=== PATIENT | female | born 1955 | race African-American/Black ===

== ENCOUNTER 2025-03-22 16:11 | Outpatient (CLI) | payer MEDICARE, SELFPAY ==
--- NOTE | ~2025-03-22 | MM_ITS ---
EXAMINATION: MM screening chrissy BI w kermit HISTORY: Screening mammogram TECHNIQUE: Craniocaudal and mediolateral oblique 3-D tomosynthesis images were obtained and synthetic 2-D images were generated. CAD analysis was submitted and interpreted. COMPARISON: No prior mammogram is available for comparison at this institution. BREAST PARENCHYMAL COMPOSITION:Not Dense. There are scattered areas of fibroglandular density. FINDINGS: No suspicious mass, calcification, or architectural distortion are identified in either karli ast to suggest malignancy. There has been no suspicious interval change. IMPRESSION: No mammographic evidence of malignancy. Recommend routine screening mammography in one year. BI-RADS Category 1: Negative Reviewed, dictated and finalized at location .
--- OUTSIDE RECORDS SUMMARY | 2025-03-22 16:18 | XMS_ITS | Clinical Summary ---
Author Organization [facility] Facility Address [address] [address] Care Team Providers Care Surveillance Agent Name Role Phone Tono Torres MD Primary Care Provider [phone] Social History Tobacco Use Types Packs/Day Years Used Date Smoking Tobacco: Never Assessed Comments Unknown Sex and Gender Information Value Date Recorded Sex Assigned at Not on file Legal Sex Female 1:39 PM EDT Gender Identity Not on file Sexual Orientation Not on file Plan of Treatment Health Maintenance Due Date Last Done Comments Breast Cancer Screening 1955 Colorectal Cancer Screening: Annual FOBT 2002 Colorectal Cancer Screening: Colonoscopy 2002 Colorectal Cancer Screening: Sigmoidoscopy 2002 Pneumococcal Vaccine: 50+ Ye ars (1 of 1 - PCV) 2003 Influenza Vaccine (#1) 2025 Hepatitis B Vaccine Aged Out No longe r eligible based on patient's age to complete this topic Insurance [facility] Medicare Care Teams Surveillance Agent Relationship Specialty Start Date End Date Tono Torres MD [address] [facility] [address] [place] [address] PCP - General Internal Medicine 05/03/24
--- OUTSIDE RECORDS SUMMARY | 2025-03-22 16:18 | XMS_ITS | Data Portability ---
Author Organization [place] - [facility], Main Office Address [address] [place] [address] Assessment No assessment recorded. Plan of Treatment Reminders Order Date Submit Date Provider Last Modified By Organization Details Last Modified Time Details Appointments None recorded. Lab PTH (parathyroi d hormone), intact, serum or plasma [id number] [place] [address] Outpatient Lab, [address] [place] [address], [address], 5 17:09:20 vitamin D, 25-hydroxy, total, serum [id number] [place] [address] Outpatient Lab, [address] [place] [address], [address], 5 17:09:20 phosphorus, serum or plasma [id number] [place] [address] Outpatient Lab, [address] [place] [address], [address], 5 17:09:20 uric acid, serum or plasma [id number] [place] [address] Outpatient Lab, [address] [place], [address], 5 17:09:20 urinalysis complete, reflex culture [id number] Outpatient Lab, [address] [place] [address], [address], 5 17:09:21 CBC w/ auto diff [id number] Outpatient Lab, [address] [place], [address], 5 17:09:19 CMP, serum or plasma [id number] Lab, [address] [place] [address], [address], 5 17:09:19 lipid panel, serum [email or web address] [place] [address] Outpatient Lab, [address] [place] [address], [address], 5 17:09:19 TSH, serum or plasma [email or web address] [place] [address] Lab, [address] [place] [address], [address], 5 17:09:20 T4, free, serum [email or web address] [place] [address] Outpatient Lab, [address] [place] [address], [address], 5 17:09:20 CBC w/ auto diff 2023 024 [facility] Lab, [address] [place] [address], [address], 4 11:34:02 CMP, serum or plasma 2023 024 [facility] Outpatient Lab, [address] [place] [address], [address], 4 11:57:31 lipid panel, serum 2023 024 [facility] Outpatient Lab, [address] [place] [address], [address], 4 11:57:33 TSH, serum or plasma 2023 024 [facility] Lab, [address] [place] [address], [address], 4 12:36:23 T4, free, serum 2023 024 [facility] Outpatient Lab, [address] [place], [address], 4 12:20:07 vitamin D, 25-hydroxy, total, serum 2022 023 [email or web address] [facility] [place] Outpatient Lab, [address] [place], [address], 3 11:13:44 CBC w/ auto diff 2022 023 [facility] Lab, [address] [place], [address], 3 12:38:17 CMP, serum or plasma 2022 023 [facility] Outpatient Lab, [address] [place], [address], 3 12:46:27 lipid panel, serum 2022 023 [facility] Lab, [address] [place], [address], 3 12:46:32 TSH, serum or plasma 2022 023 [facility] Outpatient Lab, [address] [place], [address], 3 13:05:04 T4, free, serum 2022 023 [facility] Outpatient Lab, [address] [place], [address], 3 12:58:36 T3, free, serum or plasma 2022 023 [facility] Outpatient Lab, [address] [place], [address], 3 12:58:38 Referral None recorded. Procedures None recorded. Surgeries None recorded. Imaging None recorded. Medication Orders metoprolol tartrate 25 mg tablet 2023 024 [facility], [address] [place], [address], 4 16:38:10 Patient TargetsNo targets recorded. Patient Instructions Encounter Date Encounter Id Patient Instructions Last Modified By Organization Details Last Modified Time 04/30/2023 [id number] risk assessment* [email or web address] Not availabl e 04/30/2023 10:59:29 Personalized a lt Plan and Screening Recommendations Advance Directives - Do you have one? No In process of getting one Advance Directives - Do we have your advance directive on file in your health record? Primary Prevention/Intervent ion (prevents or decreases the chance of common diseases from occurring) Smoking Risk: Non Smoker Alcohol Misuse Screening: Negative Weight: Appropriate Physical activity: Need more exercise/physical activity Nutrition: Good Eat heart healthy diet Fall Risk (screened today): Low Vaccines Pneumococcal: No further needed Influenza: Your next one in the fall of this year Chronic Disease Risks Stroke: Intermediate Risk Active diagnosis, Continue current treatment plan Heart Attack: Intermediate Risk Active diagnosis, Continue current treatment plan Clogging of the Arteries: Intermediate Risk Active diagnosis, Continue current treatment plan Diabetes: Low Risk I have no recommendations Secondary Prevention/Intervent ion (detects treatable diseases before they may cause symptoms, disability, or ) Breast Cancer Screening with mammogram: up to date Cervical/Uterine/Ova dipak Cancer Screening: No screening necessary Osteoporosis Screening: up to date Date Screening Last Performed: Colon Cancer Screening: Cologuard (DNA stool test) due 2024 Date Screening Last Performed: _2021 Eye Disease Screening: Your next exam in: goes yearly Dementia Risk: Low I have no recommendations Depression Screening: Negative I have no recommendations [email or web address] Not available 04/30/2023 10:48:52 Adult health examination risk assessment stable. Has had some continued weight loss etiology which is quite obscure. The patient has had no gastrointestinal or cardiopulmonary symptomatology. Has had no other aches or pains or suggestion of any problems. Is up-to-date on mammography as well as colon screening. Will check blood work consisting of CBC, CMP, lipid, thyroid and vitamin-D levels. Had a bone density scan last year which showed normal bone density. Is up-to-date on all immunizations. Will continue on current Rx follow-up in six months. Not available 04/30/2023 10:59:12 10/29/2023 [id number] Coronary artery disease -hypertension -hyperlipidemia all clinically stable. Will check blood work in the form of CBC, CMP, lipid, thyroid. Continue on current Rx follow-up in six months.FDA recommendations of a influenza, RSV, COVID, pneumococcal immunizations strongly advised. Portions of the record may have been created with voice recognition software. Occasional wrong-word or s ound-a-like substitutions may have occurred due to the inherent limitations of voice recognition software. Read the chart carefully and recognize, using context, where substitutions have occurred. [email or web address] Not available 10/29/2023 11:00:09 02/04/2024 [id number] Intermittent episodes of left arm pain highly consistent with possible angina. Has at times some associated mild dullness in left-sided chest pain. This is not associated with any shortness a breath, orthopnea or any other cardiovascular symptoms. The discomfort lasts usually 5-10 minutes and usually spontaneously abates. Not necessarily particularly related to exertion. However with a known history of problems. Will place on an aspirin 81 mg daily along with some low-dose metoprolol 25 mg twice a day. Set up with her medicine technologist. Instructed if any recurrent chest pain or arm pain go immediately to the emergency room for further evaluation. Needs to get in to see Dr. Payan for possible new onset angina. Keep Appointment: Fri 09:40 AM [place] Portions of the record may have been created with voice recognition software. Occasional wrong-word or s ound-a-like substitutions may have occurred due to the inherent limitations of voice recognition software. Read the chart carefully and recognize, using context, where substitutions have occurred. [email or web address] Not available 02/04/2024 16:38:13 04/28/2024 [id number] Follow-up michaud ry artery disease, essential hypertension, hyperlipidemia. Continue on current Rx will check blood work consisting of CBC, CMP, lipid and thyroid. Continue on current Rx follow-up in six months Additional Orders and/or Directives: 1. Bone density scan 2. mammogram Next Appointment: 6 Months Approximate Date: 10/25/2024 Portions of the record may have been created with voice recognition software. Occasional wrong-word or s ound-a-like substitutions may have occurred due to the inherent limitations of voice recognition software. Read the chart carefully and recognize, using context, where substitutions have occurred. [email or web address] Not available 04/28/2024 11:55:48 10/27/2024 [id number] Follow-up michaud ry artery disease, essential hypertension hyperlipidemia all clinically stable. Had an elevated creatinine in the past will need to repeat this along with other laboratory studies to assess renal function. Clinically stable. Will check blood work consisting of CBC, CMP, lipid, thyroid, phosphorus, PTH level, vitamin-D level and urinalysis. Continue on current Rx follow-up in six months. Additional Orders - Directives - Recommendations 1. Mammogram 2. DEXA Scan Follow Up: 6 Months Approximate Date: 04/25/2025 Portions of record are template driven. When necessary additional context will be provided. Additionally some portions have been created with voice recognition software. Occasional wrong-word or s ound-a-like substitutions may have occurred due to the inherent limitations of voice recognition software. Read the chart carefully and recognize, using context, where substitutions may have occurred. Created: Tono Torres M.D. 10.27.2024 09:30 AM Not available 10/27/2024 10:30:04 Reason for Referral None Reported. Results Created Date Observation Date Name Description Value Unit Range Abnormal Flag Note LastModifiedBy Organization Detail LastModifiedTime 04/30/2005/01/2023 CBC/C OMPLE TE BLD COUNT W/DIF F white blood cells 3.9 x10'3 /uL 4.2-10 .8 low Not Available [facility] (Lab) [address] [place], [address], 05/01/2023 10:46:22 04/30/20 23 05/01/2023 CBC/C OMPLE TE BLD COUNT W/DIF F red blood cells 4.95 x10'6 /uL 3.80-5 .20 Not Available [facility] (Lab) [address] [place], [address], 05/01/2023 10:46:22 04/30/20 23 05/01/2023 CBC/C OMPLE TE BLD COUNT W/DIF F hemoglobin 11.1 g/dL 12.0-1 5.6 low Not Available [facility] (Lab) [address] [place], [address], 05/01/2023 10:46:22 04/30/20 23 05/01/2023 CBC/C OMPLE TE BLD COUNT W/DIF F hematocrit 36.4 % 35.7-4 5.7 Not Available [facility] (Lab) [address] [place], [address], 05/01/2023 10:46:22 04/30/20 23 05/01/2023 CBC/C OMPLE TE BLD COUNT W/DIF F mean red cell volume 73.5 fL 82.0-9 9.0 low Not Available [facility] (Lab) [address] [place], [address], 05/01/2023 10:46:22 04/30/20 23 05/01/2023 CBC/C OMPLE TE BLD COUNT W/DIF F mean red cell hemoglobin 22.4 pg 27.0-3 3.0 low Not Available [facility] (Lab) [address] [place], [address], 05/01/2023 10:46:22 04/30/20 23 05/01/2023 CBC/C OMPLE TE BLD COUNT W/DIF F mean RBC HGB concentratio n 30.5 g/dL 31.0-3 6.0 low Not Available [facility] (Lab) [address] [place], [address], 05/01/2023 10:46:22 04/30/20 23 05/01/2023 CBC/C OMPLE TE BLD COUNT W/DIF F red cell distribution width 14.7 % 11.8-1 5.5 Not Available [facility] (Lab) [address] [place], [address], 05/01/2023 10:46:22 04/30/20 23 05/01/2023 CBC/C OMPLE TE BLD COUNT W/DIF F platelets 202 x10'3 /uL 150-40 0 Not Available [facility] (Lab) [address] [place], [address], 05/01/2023 10:46:22 04/30/20 23 05/01/2023 CBC/C OMPLE TE BLD COUNT W/DIF F mean platelet volume 9.9 fL 9.0-12 .4 Not Available [facility] (Lab) [address] [place], [address], 05/01/2023 10:46:22 04/30/20 23 05/01/2023 CBC/C OMPLE TE BLD COUNT W/DIF F neutrophils 56.5 % 39.0-7 2.0 Not Available [facility] (Lab) [address] [place], [address], 05/01/2023 10:46:22 04/30/20 23 05/01/2023 CBC/C OMPLE TE BLD COUNT W/DIF F lymphocytes 38.0 % 16.0-4 7.0 Not Available [facility] (Lab) [address] [place], [address], 05/01/2023 10:46:22 04/30/20 23 05/01/2023 CBC/C OMPLE TE BLD COUNT W/DIF F monocytes 4.9 % 5.0-12 .0 low Not Available [facility] (Lab) [address] [place], [address], 05/01/2023 10:46:22 04/30/20 23 05/01/2023 CBC/C OMPLE TE BLD COUNT W/DIF F eosinophils 0.0 % 1.0-7. 0 low Not Available [facility] (Lab) [address] [place], [address], 05/01/2023 10:46:22 04/30/20 23 05/01/2023 CBC/C OMPLE TE BLD COUNT W/DIF F basophils 0.3 % 0.0-2. 0 Not Available [facility] (Lab) [address] [place], [address], 05/01/2023 10:46:22 04/30/20 23 05/01/2023 CBC/C OMPLE TE BLD COUNT W/DIF F immature granulocytes 0.3 % 0.00-0 .50 Not Available [facility] (Lab) [address] [place], [address], 05/01/2023 10:46:22 04/30/20 23 05/01/2023 CBC/C OMPLE TE BLD COUNT W/DIF F neutrophils, absolute count 2.19 x10'3 /uL 1.5-8. 0 Not Available [facility] (Lab) [address] [place], [address], 05/01/2023 10:46:22 04/30/20 23 05/01/2023 CBC/C OMPLE TE BLD COUNT W/DIF F lymphocytes, absolute count 1.47 x10'3 /uL 1.07-3 .43 Not Available [facility] (Lab) [address] [place], [address], 05/01/2023 10:46:22 04/30/20 23 05/01/2023 CBC/C OMPLE TE BLD COUNT W/DIF F monocytes, absolute count 0.19 x10'3 /uL 0.29-0 .99 low Not Available [facility] (Lab) [address] [place], [address], 05/01/2023 10:46:22 04/30/2005/01/2023 CBC/C OMPLE TE BLD COUNT W/DIF F eosinophils, absolute count 0.00 x10'3 /uL 0.02-0 .53 low Not Available [facility] (Lab) [address] [place], [address], 05/01/2023 10:46:22 04/30/20 23 05/01/2023 CBC/C OMPLE TE BLD COUNT W/DIF F basophils, absolute count 0.01 x10'3 /uL 0.01-0 .08 Not Available [facility] (Lab) [address] [place], [address], 05/01/2023 10:46:22 04/30/2005/01/2023 CBC/C OMPLE TE BLD COUNT W/DIF F immature granulocytes ,absolute 0.01 x10'3 /uL 0.00-0 .05 Not Available [facility] (Lab) [address] [place], [address], 05/01/2023 10:46:22 04/30/20 23 05/01/2023 CBC/C OMPLE TE BLD COUNT W/DIF F nucleated red blood cells 0.0 % -0 Not Available [facility] (Lab) [address] [place], [address], 05/01/2023 10:46:22 04/30/20 23 05/01/2023 CBC/C OMPLE TE BLD COUNT W/DIF F NRBC# 0.00 x10'3 /uL Not Available [facility] (Lab) [address] [place], [address], 05/01/2023 10:46:22 04/30/20 23 05/01/2023 CBC/C OMPLE TE BLD COUNT W/DIF F anisocytosis OCCASI ONAL Not Available [facility] (Lab) [address] [place], [address], 05/01/2023 10:46:22 04/30/20 23 05/01/2023 CBC/C OMPLE TE BLD COUNT W/DIF F poikilocytos is OCCASI ONAL Not Available [facility] (Lab) [address] [place], [address], 05/01/2023 10:46:22 04/30/20 23 05/01/2023 CBC/C OMPLE TE BLD COUNT W/DIF F microcytosis 1+ Not Available [facility] (Lab) [address] [place], [address], 05/01/2023 10:46:22 04/30/20 23 05/01/2023 CBC/C OMPLE TE BLD COUNT W/DIF F target cells OCCASI ONAL Not Available [facility] (Lab) [address] [place], [address], 05/01/2023 10:46:22 04/30/20 23 05/01/2023 CBC/C OMPLE TE BLD COUNT W/DIF F ovalocytes OCCASI ONAL Not Available [facility] (Lab) [address] [place], [address], 05/01/2023 10:46:22 04/30/20 23 05/01/2023 CBC/C OMPLE TE BLD COUNT W/DIF F large platelets OCCASI ONAL Not Available [facility] (Lab) [address] [place], [address], 05/01/2023 10:46:22 04/30/20 23 04/30/2023 COMPR EHENS KYLE METAB OLIC PANEL sodium 139 mmol/ L 137-14 5 Not Available [facility] (Lab) [address] [place], [address], 04/30/2023 12:46:27 04/30/20 23 04/30/2023 COMPR EHENS KYLE METAB OLIC PANEL potassium 3.5 mmol/ L 3.5-5. 1 Not Available [facility] (Lab) [address] [place], [address], 04/30/2023 12:46:27 04/30/2004/30/2023 COMPR EHENS KYLE METAB OLIC PANEL chloride 102 mmol/ L 98-107 Not Available [facility] (Lab) [address] [place], [address], 04/30/2023 12:46:27 04/30/20 23 04/30/2023 COMPR EHENS KYLE METAB OLIC PANEL carbon dioxide 29 mmol/ L 22-30 Not Available [facility] (Lab) [address] [place], [address], 04/30/2023 12:46:27 04/30/20 23 04/30/2023 COMPR EHENS KYLE METAB OLIC PANEL anion gap 11.5 mmol/ L 14-22 low Not Available [facility] (Lab) [address] [place], [address], 04/30/2023 12:46:27 04/30/20 23 04/30/2023 COMPR EHENS KYLE METAB OLIC PANEL glucose 100 mg/dL 70-99 high Not Available [facility] (Lab) [address] [place], [address], 04/30/2023 12:46:27 04/30/2004/30/2023 COMPR EHENS KYLE METAB OLIC PANEL BUN 14 mg/dL 8-19 Not Available [facility] (Lab) [address] [place], [address], 04/30/2023 12:46:27 04/30/20 23 04/30/2023 COMPR EHENS KYLE METAB OLIC PANEL creatinine 1.15 mg/dL 0.66-1 .25 Not Available [facility] (Lab) [address] [facility] [place], [address], 04/30/2023 12:46:27 04/30/2004/30/2023 COMPR EHENS KYLE METAB OLIC PANEL GFR 57 Refer ence Range : Bradley ge GFR Healt hy Adult : >60 mL/mi n/1.7 3 m2 Chron ic Kidne y Disea se: 15-60 mL/mi n/1.7 3 m2 Kidne y Failu re: <15/m L/min /1.73 m2 www.n iddk. nih.g ov The MDRD study equat ion has not been valid ated in child romi <18 years of age; pregn ant women ; the elder ly >85 years of age; or in some racia l or ethni c subgr oups, such as Hispa nics. Outsi de the valid ated devika eters , estim ated GFR is less accur ate, requi ring clini aron judgm ent on a case- by-ca se basis . Clini aron inter preta tion for other races and ages must be made by the clini steven. The MDRD study equat ion has not been valid ated for the evalu ation of serum creat inine relat ed to nutri cookie l statu s or medic ation usage . For perso ns <18 years of age, a pedia tric GFR calcu lator is avail able on the [facility] websi te: https ://catrachito eli.dorothea carlton/pr rogers salvadoral s/kdo qi/gf r_cal culat or Not Available [facility] (Lab) [address] [place], [address], 04/30/2023 12:46:27 04/30/2004/30/2023 COMPR EHENS KYLE METAB OLIC PANEL alkaline phosphatase 65 U/L 38-126 Not Available [facility] (Lab) [address] [place], [address], 04/30/2023 12:46:27 04/30/2004/30/2023 COMPR EHENS KYLE METAB OLIC PANEL alanine aminotransfe rase 17 U/L 0-35 Not Available [facility] (Lab) [address] [place], [address], 04/30/2023 12:46:27 04/30/20 23 04/30/2023 COMPR EHENS KYLE METAB OLIC PANEL aspartate aminotransfe rase 28 U/L 15-37 Not Available [facility] (Lab) [address] [place], [address], 04/30/2023 12:46:27 04/30/20 23 04/30/2023 COMPR EHENS KYLE METAB OLIC PANEL bilirubin, total 0.60 mg/dL 0.20-1 .30 Not Available [facility] (Lab) [address] [place], [address], 04/30/2023 12:46:27 04/30/20 23 04/30/2023 COMPR EHENS KYLE METAB OLIC PANEL calcium 9.1 mg/dL 8.4-10 .2 Not Available [facility] (Lab) [address] [place], [address], 04/30/2023 12:46:27 04/30/20 23 04/30/2023 COMPR EHENS KYLE METAB OLIC PANEL total protein 7.5 g/dL 6.3-8. 2 Not Available [facility] (Lab) [address] [place], [address], 04/30/2023 12:46:27 04/30/20 23 04/30/2023 COMPR EHENS KYLE METAB OLIC PANEL albumin 4.3 g/dL 3.0-4. 4 Not Available [facility] (Lab) [address] [place], [address], 04/30/2023 12:46:27 04/30/20 23 04/30/2023 COMPR EHENS KYLE METAB OLIC PANEL globulin 3.2 g/dL 2.6-4. 2 Not Available [facility] (Lab) [address] [place], [address], 04/30/2023 12:46:27 04/30/20 23 04/30/2023 COMPR EHENS KYLE METAB OLIC PANEL A/G ratio 1.3 ratio 1.0-2. 0 Not Available [facility] (Lab) [address] [place] [address], [address], 04/30/2023 12:46:27 04/30/20 23 04/30/2023 LIPID PANEL cholesterol 171 mg/dL 140-19 9 NIH DEMETRICE NSUS RECOM MENDA TION FOR KORI STERO L: ADULT CHILD LOW RISK: <200 <170 BORDE RLINE : <200- 239 ----- HIGH RISK: >240 >200 Not Available [facility] (Lab) [address] [place] [address], [address], 04/30/2023 12:46:32 04/30/20 23 04/30/2023 LIPID PANEL triglyceride s 55 mg/dL 0-150 NIH DEMETRICE NSUS REPOR T RECOM MENDA TION FOR TRIGL YCERI EUGENE: ADULT CHILD LOW RISK: <150 ----- BODER LINE: 150-1 99 ----- HIGH RISK: >200 ----- Not Available [facility] (Lab) [address] [place] [address], [address], 04/30/2023 12:46:32 04/30/20 23 04/30/2023 LIPID PANEL HDL cholesterol 72 mg/dL 40- Not Available [facility] (Lab) [address] [place] [address], [address], 04/30/2023 12:46:32 04/30/20 23 04/30/2023 LIPID PANEL LDL cholesterol, calculated 88 mg/dL 0-130 NIH DEMETRICE NSUS REPOR T RECOM MENDA TIONS FOR LDL: ADULT CHILD LOW RISK <130 <110 (OPTI MAL LDL) <100 ----- BORDE RLINE : 130-1 59 ----- HIGH RISK: >160 >130 A TRIGL YCERI DE RESUL T >400 INVAL IDATE S THE CALCU LATIO N FOR LDL FRACT IONAT ION - THE LDL RESUL T WILL NOT BE REPOR STEPHANIE. Not Available [facility] (Lab) [address] [place], [address], 04/30/2023 12:46:32 04/30/20 23 04/30/2023 T4 FREE free T4 1.01 NG/dL 0.78-2 .19 Not Available [facility] (Lab) [address] [place], [address], 04/30/2023 12:58:36 04/30/20 23 04/30/2023 T3 FREE free T3 3.7 pg/mL 2.77-5 .27 Not Available [facility] (Lab) [address] [place], [address], 04/30/2023 12:58:38 04/30/20 23 05/01/2023 VITAM IN D 25-HY DROXY [id number] 39.4 NG/mL 30-100 Vitam in D Statu s: Defic ient: <20 ng/mL Insuf ficie nt: 20-29 ng/mL Suffi cient : 30-10 0 ng/mL Not Available [facility] (Lab) [address] [place], [address], 05/01/2023 19:10:23 04/30/20 23 04/30/2023 TSH thyroid-stim ulating hormone 0.906 uIU/m L 0.465- 4.680 Not Available [facility] (Lab) [address] [place], [address], 04/30/2023 13:05:04 10/30/19 24 10/30/2023 CBC/C OMPLE TE BLD COUNT W/DIF F white blood cells 3.3 x10'3 /uL 4.2-10 .8 low Not Available [facility] (Lab) [address] [place], [address], 10/30/2023 11:34:02 10/30/19 24 10/30/2023 CBC/C OMPLE TE BLD COUNT W/DIF F red blood cells 5.19 x10'6 /uL 3.80-5 .20 Not Available [facility] (Lab) [address] [place], [address], 10/30/2023 11:34:02 10/30/19 24 10/30/2023 CBC/C OMPLE TE BLD COUNT W/DIF F hemoglobin 12.1 g/dL 12.0-1 5.6 Not Available [facility] (Lab) [address] [place], [address], 10/30/2023 11:34:02 10/30/19 24 10/30/2023 CBC/C OMPLE TE BLD COUNT W/DIF F hematocrit 38.3 % 35.7-4 5.7 Not Available [facility] (Lab) [address] [place], [address], 10/30/2023 11:34:02 10/30/19 24 10/30/2023 CBC/C OMPLE TE BLD COUNT W/DIF F mean red cell volume 73.8 fL 82.0-9 9.0 low Not Available [facility] (Lab) [address] [place], [address], 10/30/2023 11:34:02 10/30/19 24 10/30/2023 CBC/C OMPLE TE BLD COUNT W/DIF F mean red cell hemoglobin 23.3 pg 27.0-3 3.0 low Not Available [facility] (Lab) [address] [place], [address], 10/30/2023 11:34:02 10/30/19 24 10/30/2023 CBC/C OMPLE TE BLD COUNT W/DIF F mean RBC HGB concentratio n 31.6 g/dL 31.0-3 6.0 Not Available [facility] (Lab) [address] [place], [address], 10/30/2023 11:34:02 10/30/19 24 10/30/2023 CBC/C OMPLE TE BLD COUNT W/DIF F red cell distribution width 14.2 % 11.8-1 5.5 Not Available [facility] (Lab) [address] [place], [address], 10/30/2023 11:34:02 10/30/19 24 10/30/2023 CBC/C OMPLE TE BLD COUNT W/DIF F platelets 159 x10'3 /uL 150-40 0 Not Available [facility] (Lab) [address] [place], [address], 10/30/2023 11:34:02 10/30/19 24 10/30/2023 CBC/C OMPLE TE BLD COUNT W/DIF F mean platelet volume 10.7 fL 9.0-12 .4 Not Available [facility] (Lab) [address] [place], [address], 10/30/2023 11:34:02 10/30/19 24 10/30/2023 CBC/C OMPLE TE BLD COUNT W/DIF F neutrophils 40.0 % 39.0-7 2.0 Not Available [facility] (Lab) [address] [place], [address], 10/30/2023 11:34:02 10/30/19 24 10/30/2023 CBC/C OMPLE TE BLD COUNT W/DIF F lymphocytes 52.1 % 16.0-4 7.0 high Not Available [facility] (Lab) [address] [place], [address], 10/30/2023 11:34:02 10/30/19 24 10/30/2023 CBC/C OMPLE TE BLD COUNT W/DIF F monocytes 7.3 % 5.0-12 .0 Not Available [facility] (Lab) [address] [place], [address], 10/30/2023 11:34:02 10/30/19 24 10/30/2023 CBC/C OMPLE TE BLD COUNT W/DIF F eosinophils 0.3 % 1.0-7. 0 low Not Available [facility] (Lab) [address] [place], [address], 10/30/2023 11:34:02 10/30/19 24 10/30/2023 CBC/C OMPLE TE BLD COUNT W/DIF F basophils 0.3 % 0.0-2. 0 Not Available [facility] (Lab) [address] [place], [address], 10/30/2023 11:34:02 10/30/19 24 10/30/2023 CBC/C OMPLE TE BLD COUNT W/DIF F immature granulocytes 0.0 % 0.00-0 .50 Not Available [facility] (Lab) [address] [place], [address], 10/30/2023 11:34:02 10/30/19 24 10/30/2023 CBC/C OMPLE TE BLD COUNT W/DIF F neutrophils, absolute count 1.32 x10'3 /uL 1.5-8. 0 low Not Available [facility] (Lab) [address] [place], [address], 10/30/2023 11:34:02 10/30/19 24 10/30/2023 CBC/C OMPLE TE BLD COUNT W/DIF F lymphocytes, absolute count 1.72 x10'3 /uL 1.07-3 .43 Not Available [facility] (Lab) [address] [place], [address], 10/30/2023 11:34:02 10/30/19 24 10/30/2023 CBC/C OMPLE TE BLD COUNT W/DIF F monocytes, absolute count 0.24 x10'3 /uL 0.29-0 .99 low Not Available [facility] (Lab) [address] [place], [address], 10/30/2023 11:34:02 10/30/19 24 10/30/2023 CBC/C OMPLE TE BLD COUNT W/DIF F eosinophils, absolute count 0.01 x10'3 /uL 0.02-0 .53 low Not Available [facility] (Lab) [address] [place], [address], 10/30/2023 11:34:02 10/30/19 24 10/30/2023 CBC/C OMPLE TE BLD COUNT W/DIF F basophils, absolute count 0.01 x10'3 /uL 0.01-0 .08 Not Available [facility] (Lab) [address] [place], [address], 10/30/2023 11:34:02 10/30/19 24 10/30/2023 CBC/C OMPLE TE BLD COUNT W/DIF F immature granulocytes ,absolute 0.00 x10'3 /uL 0.00-0 .05 Not Available [facility] (Lab) [address] [place], [address], 10/30/2023 11:34:02 10/30/19 24 10/30/2023 CBC/C OMPLE TE BLD COUNT W/DIF F nucleated red blood cells 0.0 % -0 Not Available [facility] (Lab) [address] [place], [address], 10/30/2023 11:34:02 10/30/19 24 10/30/2023 CBC/C OMPLE TE BLD COUNT W/DIF F NRBC# 0.00 x10'3 /uL Not Available [facility] (Lab) [address] [place], [address], 10/30/2023 11:34:02 10/30/19 24 10/30/2023 COMPR EHENS KYLE METAB OLIC PANEL sodium 136 mmol/ L 137-14 5 low Not Available [facility] (Lab) [address] [place], [address], 10/30/2023 11:57:31 10/30/19 24 10/30/2023 COMPR EHENS KYLE METAB OLIC PANEL potassium 3.5 mmol/ L 3.5-5. 1 Not Available [facility] (Lab) [address] [place], [address], 10/30/2023 11:57:31 10/30/19 24 10/30/2023 COMPR EHENS KYLE METAB OLIC PANEL chloride 101 mmol/ L 98-107 Not Available [facility] (Lab) [address] [place], [address], 10/30/2023 11:57:31 10/30/19 24 10/30/2023 COMPR EHENS KYLE METAB OLIC PANEL carbon dioxide 32 mmol/ L 22-30 high Not Available [facility] (Lab) [address] [place], [address], 10/30/2023 11:57:31 10/30/19 24 10/30/2023 COMPR EHENS KYLE METAB OLIC PANEL anion gap 6.5 mmol/ L 14-22 low Not Available [facility] (Lab) [address] [place], [address], 10/30/2023 11:57:31 10/30/19 24 10/30/2023 COMPR EHENS KYLE METAB OLIC PANEL glucose 94 mg/dL 70-99 Not Available [facility] (Lab) [address] [place], [address], 10/30/2023 11:57:31 10/30/19 24 10/30/2023 COMPR EHENS KYLE METAB OLIC PANEL BUN 21 mg/dL 8-19 high Not Available [facility] (Lab) [address] [place], [address], 10/30/2023 11:57:31 10/30/19 24 10/30/2023 COMPR EHENS KYLE METAB OLIC PANEL creatinine 1.49 mg/dL 0.66-1 .25 high Not Available [facility] (Lab) [address] [place], [address], 10/30/2023 11:57:31 10/30/19 24 10/30/2023 COMPR EHENS KYLE METAB OLIC PANEL GFR 42 Refer ence Range : Bradley ge GFR Healt hy Adult : >60 mL/mi n/1.7 3 m2 Chron ic Kidne y Disea se: 15-60 mL/mi n/1.7 3 m2 Kidne y Failu re: <15/m L/min /1.73 m2 www.n iddk. [facility].g ov The MDRD study equat ion has not been valid ated in child romi <18 years of age; pregn ant women ; the elder ly >85 years of age; or in some racia l or ethni c subgr oups, such as Hispa nics. Outsi de the valid ated devika eters , estim ated GFR is less accur ate, requi ring clini aron judgm ent on a case- by-ca se basis . Clini aron inter preta tion for other races and ages must be made by the clini steven. The MDRD study equat ion has not been valid ated for the evalu ation of serum creat inine relat ed to nutri cookie l statu s or medic ation usage . For perso ns <18 years of age, a pedia tric GFR calcu lator is avail able on the F websi te: https ://ww w.kid alcira.o rg/pr ofess ional s/kdo qi/gf r_cal culat or Not Available [facility] (Lab) [address] [place], [address], 10/30/2023 11:57:31 10/30/19 24 10/30/2023 COMPR EHENS KYLE METAB OLIC PANEL alkaline phosphatase 67 U/L 38-126 Not Available [facility] (Lab) [address] [place], [address], 10/30/2023 11:57:31 10/30/19 24 10/30/2023 COMPR EHENS KYLE METAB OLIC PANEL alanine aminotransfe rase 13 U/L 0-35 Not Available [facility] (Lab) [address] [place], [address], 10/30/2023 11:57:31 10/30/19 24 10/30/2023 COMPR EHENS KYLE METAB OLIC PANEL aspartate aminotransfe rase 26 U/L 15-37 Not Available [facility] (Lab) [address] [place], [address], 10/30/2023 11:57:31 10/30/19 24 10/30/2023 COMPR EHENS KYLE METAB OLIC PANEL bilirubin, total 0.60 mg/dL 0.20-1 .30 Not Available [facility] (Lab) [address] [place], [address], 10/30/2023 11:57:31 10/30/19 24 10/30/2023 COMPR EHENS KYLE METAB OLIC PANEL calcium 9.6 mg/dL 8.4-10 .2 Not Available [facility] (Lab) [address] [place], [address], 10/30/2023 11:57:31 10/30/19 24 10/30/2023 COMPR EHENS KYLE METAB OLIC PANEL total protein 7.4 g/dL 6.3-8. 2 Not Available [facility] (Lab) [address] [place], [address], 10/30/2023 11:57:31 10/30/19 24 10/30/2023 COMPR EHENS KYLE METAB OLIC PANEL albumin 4.2 g/dL 3.0-4. 4 Not Available [facility] (Lab) [address] [place], [address], 10/30/2023 11:57:31 10/30/19 24 10/30/2023 COMPR EHENS KYLE METAB OLIC PANEL globulin 3.2 g/dL 2.6-4. 2 Not Available [facility] (Lab) [address] [place], [address], 10/30/2023 11:57:31 10/30/19 24 10/30/2023 COMPR EHENS KYLE METAB OLIC PANEL A/G ratio 1.3 ratio 1.0-2. 0 Not Available [facility] (Lab) [address] [place], [address], 10/30/2023 11:57:31 10/30/19 24 10/30/2023 LIPID PANEL cholesterol 164 mg/dL 140-19 9 NIH DEMETRICE NSUS RECOM MENDA TION FOR KORI STERO L: ADULT CHILD LOW RISK: <200 <170 BORDE RLINE : <200- 239 ----- HIGH RISK: >240 >200 Not Available [facility] (Lab) [address] [place], [address], 10/30/2023 11:57:33 10/30/19 24 10/30/2023 LIPID PANEL triglyceride s 58 mg/dL 0-150 NIH DEMETRICE NSUS REPOR T RECOM MENDA TION FOR TRIGL YCERI EUGENE: ADULT CHILD LOW RISK: <150 ----- BODER LINE: 150-1 99 ----- HIGH RISK: >200 ----- Not Available [facility] (Lab) [address] [place], [address], 10/30/2023 11:57:33 10/30/19 24 10/30/2023 LIPID PANEL HDL cholesterol 74 mg/dL 40- Not Available [facility] (Lab) [address] [place], [address], 10/30/2023 11:57:33 10/30/19 24 10/30/2023 LIPID PANEL LDL cholesterol, calculated 78 mg/dL 0-130 NIH DEMETRICE NSUS REPOR T RECOM MENDA TIONS FOR LDL: ADULT CHILD LOW RISK <130 <110 (OPTI MAL LDL) <100 ----- ATIFDE RLINE : 130-1 59 ----- HIGH RISK: >160 >130 A TRIGL YCERI DE RESUL T >400 INVAL IDATE S THE CALCU LATIO N FOR LDL FRACT IONAT ION - THE LDL RESUL T WILL NOT BE REPOR STEPHANIE. Not Available [facility] (Lab) [address] [place], [address], 10/30/2023 11:57:33 10/30/19 24 10/30/2023 T4 FREE free T4 0.99 NG/dL 0.78-2 .19 Not Available [facility] (Lab) [address] [place], [address], 10/30/2023 12:20:07 10/30/19 24 10/30/2023 TSH thyroid-stim ulating hormone 0.927 uIU/m L 0.465- 4.680 Not Available [facility] (Lab) [address] [place], [address], 10/30/2023 12:36:23 04/28/20 24 04/28/2024 CBC/C OMPLE TE BLD COUNT W/DIF F white blood cells 3.8 x10'3 /uL 4.2-10 .8 low Not Available [facility] (Lab) [address] [place], [address], 04/28/2024 15:07:08 04/28/20 24 04/28/2024 CBC/C OMPLE TE BLD COUNT W/DIF F red blood cells 5.08 x10'6 /uL 3.80-5 .20 Not Available [facility] (Lab) [address] [place], [address], 04/28/2024 15:07:08 04/28/20 24 04/28/2024 CBC/C OMPLE TE BLD COUNT W/DIF F hemoglobin 11.6 g/dL 12.0-1 5.6 low Not Available [facility] (Lab) [address] [place], [address], 04/28/2024 15:07:08 04/28/20 24 04/28/2024 CBC/C OMPLE TE BLD COUNT W/DIF F hematocrit 37.9 % 35.7-4 5.7 Not Available [facility] (Lab) [address] [place], [address], 04/28/2024 15:07:08 04/28/20 24 04/28/2024 CBC/C OMPLE TE BLD COUNT W/DIF F mean red cell volume 74.6 fL 82.0-9 9.0 low Not Available [facility] (Lab) [address] [place], [address], 04/28/2024 15:07:08 04/28/20 24 04/28/2024 CBC/C OMPLE TE BLD COUNT W/DIF F mean red cell hemoglobin 22.8 pg 27.0-3 3.0 low Not Available [facility] (Lab) [address] [place], [address], 04/28/2024 15:07:08 04/28/20 24 04/28/2024 CBC/C OMPLE TE BLD COUNT W/DIF F mean RBC HGB concentratio n 30.6 g/dL 31.0-3 6.0 low Not Available [facility] (Lab) [address] [place], [address], 04/28/2024 15:07:08 04/28/20 24 04/28/2024 CBC/C OMPLE TE BLD COUNT W/DIF F red cell distribution width 14.7 % 11.8-1 5.5 Not Available [facility] (Lab) [address] [place], [address], 04/28/2024 15:07:08 04/28/20 24 04/28/2024 CBC/C OMPLE TE BLD COUNT W/DIF F platelets 154 x10'3 /uL 150-40 0 Not Available [facility] (Lab) [address] [place], [address], 04/28/2024 15:07:08 04/28/20 24 04/28/2024 CBC/C OMPLE TE BLD COUNT W/DIF F mean platelet volume 11.3 fL 9.0-12 .4 Not Available [facility] (Lab) [address] [place], [address], 04/28/2024 15:07:08 04/28/20 24 04/28/2024 CBC/C OMPLE TE BLD COUNT W/DIF F neutrophils 46.7 % 39.0-7 2.0 Not Available [facility] (Lab) [address] [place], [address], 04/28/2024 15:07:08 04/28/20 24 04/28/2024 CBC/C OMPLE TE BLD COUNT W/DIF F lymphocytes 45.4 % 16.0-4 7.0 Not Available [facility] (Lab) [address] [place], [address], 04/28/2024 15:07:08 04/28/20 24 04/28/2024 CBC/C OMPLE TE BLD COUNT W/DIF F monocytes 6.3 % 5.0-12 .0 Not Available [facility] (Lab) [address] [place], [address], 04/28/2024 15:07:08 04/28/20 24 04/28/2024 CBC/C OMPLE TE BLD COUNT W/DIF F eosinophils 0.8 % 1.0-7. 0 low Not Available [facility] (Lab) [address] [place], [address], 04/28/2024 15:07:08 04/28/20 24 04/28/2024 CBC/C OMPLE TE BLD COUNT W/DIF F basophils 0.5 % 0.0-2. 0 Not Available [facility] (Lab) [address] [place], [address], 04/28/2024 15:07:08 04/28/20 24 04/28/2024 CBC/C OMPLE TE BLD COUNT W/DIF F immature granulocytes 0.3 % 0.00-0 .50 Not Available [facility] (Lab) [address] [place], [address], 04/28/2024 15:07:08 04/28/20 24 04/28/2024 CBC/C OMPLE TE BLD COUNT W/DIF F neutrophils, absolute count 1.77 x10'3 /uL 1.5-8. 0 Not Available [facility] (Lab) [address] [place], [address], 04/28/2024 15:07:08 04/28/20 24 04/28/2024 CBC/C OMPLE TE BLD COUNT W/DIF F lymphocytes, absolute count 1.72 x10'3 /uL 1.07-3 .43 Not Available [facility] (Lab) [address] [place], [address], 04/28/2024 15:07:08 04/28/20 24 04/28/2024 CBC/C OMPLE TE BLD COUNT W/DIF F monocytes, absolute count 0.24 x10'3 /uL 0.29-0 .99 low Not Available [facility] (Lab) [address] [place], [address], 04/28/2024 15:07:08 04/28/20 24 04/28/2024 CBC/C OMPLE TE BLD COUNT W/DIF F eosinophils, absolute count 0.03 x10'3 /uL 0.02-0 .53 Not Available [facility] (Lab) [address] [place], [address], 04/28/2024 15:07:08 04/28/20 24 04/28/2024 CBC/C OMPLE TE BLD COUNT W/DIF F basophils, absolute count 0.02 x10'3 /uL 0.01-0 .08 Not Available [facility] (Lab) [address] [place], [address], 04/28/2024 15:07:08 04/28/20 24 04/28/2024 CBC/C OMPLE TE BLD COUNT W/DIF F immature granulocytes ,absolute 0.01 x10'3 /uL 0.00-0 .05 Not Available [facility] (Lab) [address] [place], [address], 04/28/2024 15:07:08 04/28/20 24 04/28/2024 CBC/C OMPLE TE BLD COUNT W/DIF F nucleated red blood cells 0.0 % -0 Not Available [facility] (Lab) [address] [place], [address], 04/28/2024 15:07:08 04/28/20 24 04/28/2024 CBC/C OMPLE TE BLD COUNT W/DIF F NRBC# 0.00 x10'3 /uL Not Available [facility] (Lab) [address] [place], [address], 04/28/2024 15:07:08 04/28/20 24 04/28/2024 CBC/C OMPLE TE BLD COUNT W/DIF F anisocytosis OCCASI ONAL Not Available [facility] (Lab) [address] [place], [address], 04/28/2024 15:07:08 04/28/20 24 04/28/2024 CBC/C OMPLE TE BLD COUNT W/DIF F poikilocytos is OCCASI ONAL Not Available [facility] (Lab) [address] [place], [address], 04/28/2024 15:07:08 04/28/20 24 04/28/2024 CBC/C OMPLE TE BLD COUNT W/DIF F microcytosis OCCASI ONAL Not Available [facility] (Lab) [address] [place], [address], 04/28/2024 15:07:08 04/28/20 24 04/28/2024 CBC/C OMPLE TE BLD COUNT W/DIF F ovalocytes OCCASI ONAL Not Available [facility] (Lab) [address] [place], [address], 04/28/2024 15:07:08 04/28/20 24 04/28/2024 COMPR EHENS KYLE METAB OLIC PANEL sodium 137 mmol/ L 137-14 5 Not Available [facility] (Lab) [address] [place], [address], 04/28/2024 16:30:58 04/28/20 24 04/28/2024 COMPR EHENS KYLE METAB OLIC PANEL potassium 4.2 mmol/ L 3.5-5. 1 Not Available [facility] (Lab) [address] [place], [address], 04/28/2024 16:30:58 04/28/20 24 04/28/2024 COMPR EHENS KYLE METAB OLIC PANEL chloride 108 mmol/ L 98-107 high Not Available [facility] (Lab) [address] [place], [address], 04/28/2024 16:30:58 04/28/20 24 04/28/2024 COMPR EHENS KYLE METAB OLIC PANEL carbon dioxide 27 mmol/ L 22-30 Not Available [facility] (Lab) [address] [place], [address], 04/28/2024 16:30:58 04/28/20 24 04/28/2024 COMPR EHENS KYLE METAB OLIC PANEL anion gap 6.2 mmol/ L 14-22 low Not Available [facility] (Lab) [address] [place], [address], 04/28/2024 16:30:58 04/28/20 24 04/28/2024 COMPR EHENS KYLE METAB OLIC PANEL glucose 90 mg/dL 70-99 Not Available [facility] (Lab) [address] [place], [address], 04/28/2024 16:30:58 04/28/20 24 04/28/2024 COMPR EHENS KYLE METAB OLIC PANEL BUN 26 mg/dL 8-19 high Not Available [facility] (Lab) [address] [place], [address], 04/28/2024 16:30:58 04/28/20 24 04/28/2024 COMPR EHENS KYLE METAB OLIC PANEL creatinine 1.51 mg/dL 0.66-1 .25 high Not Available [facility] (Lab) [address] [place], [address], 04/28/2024 16:30:58 04/28/20 24 04/28/2024 COMPR EHENS KYLE METAB OLIC PANEL GFR 41 Refer ence Range : Bradley ge GFR Healt hy Adult : >60 mL/mi n/1.7 3 m2 Chron ic Kidne y Disea se: 15-60 mL/mi n/1.7 3 m2 Kidne y Failu re: <15/m L/min /1.73 m2 www.n iddk. nih.g ov The MDRD study equat ion has not been valid ated in child romi <18 years of age; pregn ant women ; the elder ly >85 years of age; or in some racia l or ethni c subgr oups, such as Hispa nics. Outsi de the valid ated devika eters , estim ated GFR is less accur ate, requi ring clini aron judgm ent on a case- by-ca se basis . Clini aron inter preta tion for other races and ages must be made by the clini steven. The MDRD study equat ion has not been valid ated for the evalu ation of serum creat inine relat ed to nutri cookie l statu s or medic ation usage . For perso ns <18 years of age, a pedia tric GFR calcu lator is avail able on the F websi te: https ://catrachito w.laurie laureanoy.o rg/pr ofess ional s/kdo qi/gf r_cal culat or Not Available [facility] (Lab) [address] [place], [address], 04/28/2024 16:30:58 04/28/20 24 04/28/2024 COMPR EHENS KYLE METAB OLIC PANEL alkaline phosphatase 75 U/L 38-126 Not Available [facility] (Lab) [address] [place], [address], 04/28/2024 16:30:58 04/28/20 24 04/28/2024 COMPR EHENS KYLE METAB OLIC PANEL alanine aminotransfe rase 25 U/L 0-35 Not Available [facility] (Lab) [address] [place], [address], 04/28/2024 16:30:58 04/28/20 24 04/28/2024 COMPR EHENS KYLE METAB OLIC PANEL aspartate aminotransfe rase 30 U/L 15-37 Not Available [facility] (Lab) [address] [place], [address], 04/28/2024 16:30:58 04/28/20 24 04/28/2024 COMPR EHENS KYLE METAB OLIC PANEL bilirubin, total 0.70 mg/dL 0.20-1 .30 Not Available [facility] (Lab) [address] [place], [address], 04/28/2024 16:30:58 04/28/20 24 04/28/2024 COMPR EHENS KYLE METAB OLIC PANEL calcium 9.2 mg/dL 8.4-10 .2 Not Available [facility] (Lab) [address] [place], [address], 04/28/2024 16:30:58 04/28/20 24 04/28/2024 COMPR EHENS KYLE METAB OLIC PANEL total protein 6.9 g/dL 6.3-8. 2 Not Available [facility] (Lab) [address] [place], [address], 04/28/2024 16:30:58 04/28/20 24 04/28/2024 COMPR EHENS KYLE METAB OLIC PANEL albumin 4.0 g/dL 3.0-4. 4 Not Available [facility] (Lab) [address] [place], [address], 04/28/2024 16:30:58 04/28/20 24 04/28/2024 COMPR EHENS KYLE METAB OLIC PANEL globulin 2.9 g/dL 2.6-4. 2 Not Available [facility] (Lab) [address] [place], [address], 04/28/2024 16:30:58 04/28/20 24 04/28/2024 COMPR EHENS KYLE METAB OLIC PANEL A/G ratio 1.4 ratio 1.0-2. 0 Not Available [facility] (Lab) [address] [place], [address], 04/28/2024 16:30:58 04/28/20 24 04/28/2024 LIPID PANEL cholesterol 150 mg/dL 140-19 9 NIH DEMETRICE NSUS RECOM MENDA TION FOR KORI STERO L: ADULT CHILD LOW RISK: <200 <170 BORDE RLINE : <200- 239 ----- HIGH RISK: >240 >200 Not Available [facility] (Lab) [address] [place], [address], 04/28/2024 16:31:00 04/28/20 24 04/28/2024 LIPID PANEL triglyceride s 46 mg/dL 0-150 NIH DEMETRICE NSUS REPOR T RECOM MENDA TION FOR TRIGL YCERI EUGENE: ADULT CHILD LOW RISK: <150 ----- BODER LINE: 150-1 99 ----- HIGH RISK: >200 ----- Not Available [facility] (Lab) [address] [place], [address], 04/28/2024 16:31:00 04/28/20 24 04/28/2024 LIPID PANEL HDL cholesterol 74 mg/dL 40- Not Available [facility] (Lab) [address] [place], [address], 04/28/2024 16:31:00 04/28/20 24 04/28/2024 LIPID PANEL LDL cholesterol, calculated 67 mg/dL 0-130 NIH DEMETRICE NSUS REPOR T RECOM MENDA TIONS FOR LDL: ADULT CHILD LOW RISK <130 <110 (OPTI MAL LDL) <100 ----- BORDE RLINE : 130-1 59 ----- HIGH RISK: >160 >130 A TRIGL YCERI DE RESUL T >400 INVAL IDATE S THE CALCU LATIO N FOR LDL FRACT IONAT ION - THE LDL RESUL T WILL NOT BE REPOR STEPHANIE. Not Available [facility] (Lab) [address] [place], [address], 04/28/2024 16:31:00 03/22/20 24 03/22/2024 pharm acolo gic nucle ar stres s test No observ ation record ed. [address] [facility] [address], [place], [address], 03/22/2024 17:45:36 03/22/20 24 03/22/2024 pharm acolo gic nucle ar stres s test No observ ation record ed. [address] [facility] [address], [place], [address], 03/22/2024 17:46:20 03/22/20 24 03/22/2024 myoca rdial perfu hillary study w/ eject ion fract ion (PROC ) No observ ation record ed. [email or web address] [facility] [address], [place], [address], 03/22/2024 17:50:54 01/25/20 25 01/21/2025 US, echoc ardio gram No observ ation record ed. [email or web address] [facility] [address], [place], [address], 01/24/2025 17:22:50 Result Notes None recorded. 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 Not Available [facility] 3 14:48:24 Osteoarthriti s of knee 644600008 Active Not Available [facility] 3 14:48:25 Pure hypercholeste rolemia 265844505 Active Not Available [facility] 3 14:48:25 Eruption 762023512 Active Not Available [facility] 3 14:48:25 Screening for malignant neoplasm of colon Active 2021 Not Available [facility] 3 14:48:25 Chest pain 19024118 Active Not Available [facility] 3 14:48:25 Active immunization Active 2021 Not Available [facility] 3 14:48:25 Vitamin D deficiency 67479733 Active 2021 Not Available [facility] 3 14:48:25 Migraine 03798551 Active Not Available [facility] 3 14:48:25 Coronary arteriosclero sis 57224038 Active 2016 Not Available [facility] 3 14:48:25 Cervical radiculopathy 57121642 Active Not Available [facility] 3 14:48:26 Essential hypertension 97366384 Active Not Available [facility] 3 14:48:26 Serum creatinine above reference range 770116797 Active 2023 Alaina Baird, DANIS null, [place] - [facility] [place] [facility] 4 16:04:28 Chronic kidney disease stage 3 518533316 Active 2024 Tono Torres MD [address], [facility] [address], [place], [address] , [facility] [employer] [facility] 5 10:29:24 Senile osteoporosis 95056723 Active 2024 So Shepherd mellissa, [facility] [employer] [facility] 5 10:35:40 Problem Notes None recorded. Medical Equipment None Reported. Allergies Allergen ID Allergen Name Allergen Category Reaction Reaction Severity Criticality Documentation Date Start Date Code Code System Note Provider Name and Address Organization Details Recorded Time 06706 codeine medicatio n nausea Not available Not available 11/20/2022 2670 RxNorm Not Available [facility] [facility] 3 14:51:05 Medications Name Sig Start Date Stop Date Status Note LastModified by Organization Details LastModified Time Pravachol 40 mg tablet Take 1 tablet every day by oral route. 05/08 completed Not Available Not Available Not Available atorvastati n 40 mg tablet TAKE 1 TABLET BY MOUTH ONCE DAILY active Not Available Not Available No t Available azithromyci n 250 mg tablet TAKE 2 TABLETS BY MOUTH ON DAY 1, AND THEN TAKE 1 TABLET BY MOUTH ONCE A DAY ON DAY 2 THROUGH DAY 5 10/24 completed Not Available Not Available Not Available lisinopril 20 mg tablet Take 1 tablet by mouth once daily 2024 active Not Available Not Available Not Avai lable Medrol (Presley) 4 mg tablets in a dose pack Take by oral route as directed active Not Available Not Available No t Available amlodipine 10 mg tablet Take 1 tablet by mouth once daily active Not Available Not Available No t Available dexamethaso ne 2 mg tablet One Tablet TID for 3 Days One Tablet BID for 3 Days One Table once daily 3 days active Not Available Not Available No t Available Valtrex 1 gram tablet Take 1 tablet every day by oral route. 10/24 completed Not Available Not Available Not Available hydrochloro thiazide 25 mg tablet Take 1 tablet by mouth once daily active Not Available Not Available No t Available Vitamin D2 1,250 mcg (50,000 unit) capsule Take 1 capsule every week by oral route. 10/27 completed Not Available Not Available Not Available hydroxyzine HCl 10 mg tablet Take by oral route four times daily PRN for itching active Not Available Not Available No t Available metoprolol tartrate 25 mg tablet TAKE 1 TABLET BY MOUTH TWICE DAILY active Not Available Not Available No t Available Vitals Date Recorded Body height Body mass index (BMI) Body weight Heart rate Oxygen saturation Oxygen saturation in Arterial blood by Pulse oximetry Systolic blood pressure Diastolic blood pressure Provider Name and Address Organization Details Last Updated DateTime 5 152.4 cm 24.6 kg/m2 44906.6 4 g 79 /min 98 % 98 % 132 mm[Hg] 72 mm[Hg] Alaina Baird CMA [facility] [employer] [facility] 5 10:21:37 Date Recorded Body height Body mass index (BMI) Body weight Heart rate Body temperature Oxygen saturation Oxygen saturation in Arterial blood by Pulse oximetry Systolic blood pressure Diastolic blood pressure Provider Name and Address Organization Details Last Updated DateTime 4 152.4 cm 20.7 kg/m2 94309.7 9 g 61 /min 97 [degF] 96 % 96 % 118 mm[Hg] 60 mm[Hg] Aria Grijalva [facility] [employer] [facility] 4 10:44:31 Date Recorded Body height Body mass index (BMI) Body weight Heart rate Body temperature Oxygen saturation Oxygen saturation in Arterial blood by Pulse oximetry Systolic blood pressure Diastolic blood pressure Provider Name and Address Organization Details Last Updated DateTime 4 152.4 cm 21.9 kg/m2 24582.3 5 g 72 /min 97.4 [degF] 98 % 98 % 136 mm[Hg] 70 mm[Hg] KAYLEY Ryan [facility] [employer] [facility] 4 16:15:31 Date Recorded Body height Body mass index (BMI) Body weight Heart rate Body temperature Oxygen saturation Oxygen saturation in Arterial blood by Pulse oximetry Systolic blood pressure Diastolic blood pressure Provider Name and Address Organization Details Last Updated DateTime 4 152.4 cm 23.6 kg/m2 52784.6 8 g 61 /min 97.2 [degF] 98 % 98 % 118 mm[Hg] 76 mm[Hg] KAYLEY Ryan [facility] [employer] [facility] 4 10:36:00 Date Recorded Body height Body mass index (BMI) Body weight Heart rate Body temperature Oxygen saturation Oxygen saturation in Arterial blood by Pulse oximetry Systolic blood pressure Diastolic blood pressure Provider Name and Address Organization Details Last Updated DateTime 3 152.4 cm 21.9 kg/m2 28362.3 5 g 68 /min 97 [degF] 97 % 97 % 118 mm[Hg] 72 mm[Hg] Aria Grijalva [place] [facility] [place] 3 10:43:05 Social History None recorded. Functional Status None recorded. Mental Status None recorded. Family History Nothing Reported Notes:Mother Living 80 years old ASDH Father 50 years old 2 Brothers 2 Living 4 Sisters 3 Living one sudden Medical History Condition Response NERVE DISEASE N BLINDNESS N RHEUMATIC FEVER N KIDNEY STONES N BLADDER PROBLEMS N MRSA N OTHER # 1 N POLIO N LUNG DISEASE/DISORDER N HISTORY OF DRUG ABUSE N COPD N RADIATION / CHEMOTHERAPY N Other # 2 N BLOOD DISEASES N EAR OR HEARING PROBLEMS N MUMPS N SHINGLES N BOWEL PROBLEMS N DEPRESSION (INCLUDING POST ) N STROKE/TIA N ULCERS N BENIGN PROSTATIC HYPERPLASIA N MEASLES N HYPOTENSION N MYOCARDIAL INFARCTION N OBESITY N GERD/NAUSEA N ANEURYSM N URINARY/BLADDER/KIDNEY PROBLEMS N CORONARY ARTERY DISEASE (CAD) N ADDICTION CONCERNS N ENDOMETRIOSIS N Impotence N USE OF BLOOD THINNERS N SKIN PROBLEMS N GASTROINTESTINAL DISORDER N PERIPHERAL VASCULAR DISEASE N MUSCLE,JOINT OR BONE PROBLEMS N GASTROINTESTINAL BLEEDING N BLOOD CLOTS N ASTHMA N CATARACTS N ERECTILE DYSFUNCTION N VARICOSITIES N GI PROBLEMS N Low Testosterone N INFERTILITY N AIDS/HIV N CHEMOTHERAPY / RADIATION N LIVER DISEASE N MALE HYPOGONADISM N HYPERTENSION Y Deficiency N TOURETTE'S N ANXIETY DISORDER N BLOOD TRANSFUSION N ANEMIA/BLOOD DISORDER N CHRONIC EAR INFECTIONS N BRONCHITIS N TUBERCULOSIS N GLAUCOMA N FOOT PROBLEM N DIVERTICULITIS N SLEEP APNEA N CHICKENPOX N INFECTIOUS DISEASE N PROSTATE N HEART ARRHYTHMIA N INSOMNIA N HIGH CHOLESTEROL / HYPERLIPIDEMIA Y EYE PROBLEMS N HYPERTHYROIDISM N EDEMA N CHRONIC PAIN SYNDROME N HYPOTHYROIDISM N CONSTIPATION N CAROTID BLOCKAGE N BACK / NECK PROBLEMS N HAVE YOU BEEN HOSPITALIZED OR SEEN IN [facility] IN THE PAST YEAR ? N ATHEROSCLEROSIS N BREAST PROBLEMS N DIALYSIS N ECZEMA N OSTEOPOROSIS N ARTHRITIS N NO SIGNIFICANT PAST MEDICAL HISTORY N APPENDICITIS N DIABETES, TYPE N BAD TEETH N ENT N HEARTBURN / REFLUX N AUTISM SPECTRUM DISORDER (ASD) N HEPATITIS / LIVER DISEASE N GOUT N SLEEP DISORDER N ALZHEIMER'S DISEASE N Brain Problems N HERPES N DEMENTIA N HEADACHES/MIGRAINES N SEIZURES/EPILEPSY N VASCULAR DISEASE N PACEMAKER N Blood Disorder N DIZZINESS N HEART DISEASE/HEART PROBLEMS Y KIDNEY DISEASE N MULTIPLE SCLEROSIS N CARDIAC ARRHYTHMIA N CANCER: SPECIFY N ATRIAL FIBRILLATION N Gall Stones N PULMONARY EMBOLISM N AUTOIMMUNE DISEASE N Gynecological HistoryNo gynecological history recorded. Obstetrics History GPAL:G 0 P 0 0 0 0 Immunizations Vaccine Type Date Status Note Provider Nam e and Address Organization Details Recorded Time SARS-COV-2 (COVID-19) vaccine, UNSPECIFIED 1 completed Not Available [facility] 11/20/2022 14:50:59 SARS-COV-2 (COVID-19) vaccine, UNSPECIFIED 1 completed Not Available [facility] 11/20/2022 14:50:59 Influenza, high-dose, quadrivalent, PF 2 completed Not Available [facility] 11/20/2022 14:50:59 Influenza, high-dose, quadrivalent, PF 1 completed Not Available [facility] 11/20/2022 14:50:59 Pneumococcal conjugate PCV 13 0 completed Not Available [facility] 11/20/2022 14:51:00 Past Encounters Encounter ID Performer Location Encounter Start Date Encounter Closed Date Diagnosis/Indication Diagnosis SNOMED-CT Code Diagnosis ICD10 Code Diagnosis Note [id number] Tono Torres MD [facility] [address] [address] 04/25/2021 00:00:00 04/25/2021 12:21:43 [id number] Tono Torres MD [facility] [address] [address] 10/24/2021 00:00:00 10/24/2021 11:29:19 [id number] Tono Torres MD [facility] [address] [address] 04/24/2022 00:00:00 04/24/2022 10:44:29 [id number] Tono Torres MD [facility] [address] [address] 10/23/2022 00:00:00 10/23/2022 10:36:50 [id number] Tono Torres MD [facility] Internal Med [place] [address] [place] [id number] 04/30/2023 10:36:09 04/30/2023 11:03:30 Adult health examination 288600351 Z00.00 Depression screening 171 878102 Z13.31 Coronary arteriosclerosis 18134127 I25.10 Essential hypertension 95661849 I10 Pure hypercholesterolemia 445673290 E78.00 Vitamin D deficiency 347 07171 E55.9 [id number] Tono Torres MD [facility] [place] [address] [place] [address] 0 10/29/2023 10:35:31 10/29/2023 11:05:12 Coronary arteriosclerosis 11839513 I25.10 Pure hypercholesterolemia 864396989 E78.00 Essential hypertension 41039452 I10 [id number] Tono Torres MD [facility] Internal Med [address] [place] [address] 0 02/04/2024 16:09:04 02/04/2024 16:58:13 Coronary arteriosclerosis 93882760 I25.10 Essential hypertension 71191517 I10 Pure hypercholesterolemia 074480425 E78.00 [id number] Tono Torres MD [facility] Internal Med [address] [address] 0 04/28/2024 10:10:13 04/28/2024 11:58:08 Coronary arteriosclerosis 74947321 I25.10 Essential hypertension 79832280 I10 Pure hypercholesterolemia 595826611 E78.00 [id number] Tono Torres MD [facility] [place] [address] [address] 0 10/27/2024 10:15:41 10/27/2024 10:46:24 Coronary arteriosclerosis 03099262 I25.10 Essential hypertension 48055254 I10 Pure hypercholesterolemia 039759994 E78.00 Chronic ki dney disease stage 3 900272278 N18.30 Health Concerns Section Related Observation LastModified by Organization Detai ls LastModified Time None Recorded Concern Status LastModified by Organization Details LastModified Time None Recorded Advance Directives Directive None Recorded Payers Insurance Date Sequence Insurance Name Policy Number Policy Lopez Covered Member ID Lopez Member ID Guarantor Name 10/27/2024 1 [facility] (MEDICARE REPLACEMENT/A DVANTAGE - HMO) [id number] Romy Claytonmons [id number] Romy Qamar Lin Notes Date Note Type Note Provider Name and Address Organization Details Recorded Time 3 text/htm l Patient Name: Romy AlbertsDate Of Service: Friday ( 04.30.2023 ): 1955 Age: 67 There has been approximately a 7 lb weight loss since 11/27/2022. This represents approximately a 5.9% change in weight. Weight change attributable to lifestyle changes. Vital Signs:Blood Pressure: Sitting Rt. Arm 118/72Pulse: Sitting 68 /min and RegularRespirations: 12Height 60 in or 1.5 mWeight 112 lb or 50.8 kgBMI 21.9Temperature: 97 F or 36.1 CPulse Oximetry: 97 % at rest on no oxygen Chief Complaint: Addressed in HPI Problems or conditions discussed in the HPI were the only ones reviewed during the encounter.Only social and family history addressed in the HPI were reviewed during this encounter. Attendant(s): None Constitutional and Systemic Symptoms: weight loss but no change in appetite and or any other cardiovascular pulmonary or gastrointestinal symptomatology. Medication Reconciliation: from medication list. History of Present Illness #1. Coronary Artery Disease: There has been no change in frequency - duration - intensity in frequency, duration or intensity of chest pain. Other Complaints: none The frequency of anginal attacks is none at all. Additional Symptoms: none Therapy reviewed regarding cardiovascular management includes Hydrochlorothiazide, Lisinopril and Norvasc #2. Essential Hypertension: Stage: Stage I Interval Neurological Complaints no headaches, dizziness, weakness, visual changes, ataxia, aphasia and apraxia. No shortness of breath, orthopnea or cardiovascular symptoms. No other symptoms related to end organ damage. Pressure has been under excellent control. Currently normal. No other end organ symptoms or findings. Therapy reviewed regarding management of hypertension and includes salt restriction and Hydrochlorothiazide, Lisinopril and Norvasc. #3. Type II Hypercholesterolaemia: Currently taking medication and tolerating well. No interval complaints of any muscle pain or arthralgia. No significant liver changes with medications. Last lipid panel: fair control. Therapy reviewed regarding treatment of cholesterol management and include diet and Lipitor.Medication List Reviewed and Reconciled 04/30/2023Norvasc 10 MG (TABLET - ORAL) One Daily For HtnHydrochlorothiazide 25 MG (TABLET - ORAL) One Daily For HtnLisinopril 20 MG (TABLET - ORAL) One Daily For HtnLipitor 40 MG (TABLET - ORAL) Once DailyADRs List Reviewed 04/30/2023odeine NauseaVaccination and Atwuiycqljdy6195-01 Giayaiak5495-33 Aueylfzpn5262-28 Covid Booster Rbfdxt3050-74 Pneumovax 545417-78 Covid 19 Jerman & R8460-55 Prevnar 13Surgical HistoryPacemaker, Pulmonary Artery Monitor, Rt. TypanoplastyPreventative Testing Confirmed by Our Gygjyxd0506/12/2022 MAMMOGRAM DEXA SCAN04/24/2022 ALBUMIN 4.2 G/DL11/02/2021 COLOGUARD COLONOSCOPY (10 YEARS) 08/02/2021ocial HistorySOCIAL HISTORY:Does not smoke cigarettes. Drinking Hx: 2 Cups of coffee per day, < 6 cans of soft drinks per day.Exercise: InfrequentlySexual Hx: Sexually ActiveOccupation: Office WorkerFamily HistoryFAMILY HISTORY:Mother 85 years old ASDHFather 50 years old2 Brothers 2 Living4 Sisters 3 Living one sudden Tono Torres MD [address] [facility], [facility] [address], [place], [address], [facility] [employer] 04/30/2023 10:59:33 4 text/htm l Patient Name: Romy Gayle Of Service: Friday ( 10.29.2023 ): 1955 Age: 68 There has been approximately a 6 lb weight loss since 04/30/2023. This represents approximately a 5.4% change in weight. Weight change attributable to lifestyle changes. Vital Signs:Blood Pressure: Sitting Rt. Arm 118/60Pulse: Sitting 61 /min and RegularRespiratory Rate: 12Height 65 in or 1.7 mWeight 106 lb or 48.1 kgBMI 17.6Temperature: 97 F or 36.1 CPulse Oximetry: 96 % at rest on no oxygen Chief Complaint: Addressed in HPI Problems or conditions discussed in the HPI were the only ones reviewed during the encounter.Only social and family history addressed in the HPI were reviewed during this encounter. Attendant(s): NoneConstitutional and Systemic Symptoms:none Medication Reconciliation: from medication list. History of Present Illness #1. Coronary Artery Disease: There has been no change in frequency - duration - intensity in frequency, duration or intensity of chest pain. Other Complaints: none The frequency of anginal attacks is none at all. Additional Symptoms: none Therapy reviewed regarding cardiovascular management includes Hydrochlorothiazide, Lisinopril and Norvasc #2. Essential Hypertension: Stage: Stage I Interval Neurological Complaints no headaches, dizziness, weakness, visual changes, ataxia, aphasia and apraxia. No shortness of breath, orthopnea or cardiovascular symptoms. No other symptoms related to end organ damage. Pressure has been under excellent control. Currently normal. No other end organ symptoms or findings. Therapy reviewed regarding management of hypertension and includes salt restriction and Hydrochlorothiazide, Lisinopril and Norvasc. #3. Type II Hypercholesterolaemia: Currently taking medication and tolerating well. No interval complaints of any muscle pain or arthralgia. No significant liver changes with medications. Last lipid panel: fair control. Therapy reviewed regarding treatment of cholesterol management and include diet and Lipitor. Active Medication ListNorvasc 10 MG (TABLET - ORAL) One Daily For HtnHydrochlorothiazide 25 MG (TABLET - ORAL) One Daily For HtnLisinopril 20 MG (TABLET - ORAL) One Daily For HtnLipitor 40 MG (TABLET - ORAL) Once Daily Adverse Drug Reactions ReviewedCodeine Nausea Vaccination and Aqnfnrdgynon9661-98 Yyyrccnj8916-75 Vsiwjsqhi9973-96 Covid Booster Rmlvvci4707-34 Qizrilvcw4077-50 Covid 19 Jerman & Oazykxx7157-54 Prevnar 13 [facility] Surgical Unyxste7764-33 Mfzvudsdi0390-91 Pulmonary Artery Uuzsrvg9919-27 Rt. Typanoplasty Preventative Testing Confirmed by Our Jjklekn5504/30/2023 ALBUMIN 4.3 G/DL N006/12/2022 MAMMOGRAM / DEXA SCAN11/02/2021 COLOGUARD 5110/02/2010 COLONOSCOPY (10 YEARS) 08/02/2021 Social HistorySOCIAL HISTORY:Does not smoke cigarettes. Drinking Hx: 2 Cups of coffee per day, < 6 cans of soft drinks per day.Exercise: InfrequentlySexual Hx: Sexually ActiveOccupation: Athletic Coach Family HistoryFAMILY HISTORY:Mother 85 years old ASDHFather 50 years old2 Brothers 2 Living4 Sisters 3 Living one sudden Tono Torres MD [address] [facility], [facility] [address], [place], [address], [place] [facility] [place] [employer] 10/29/2023 11:00:32 4 text/htm l Patient Name: Roym Tothate Of Service: Friday ( 02.04.2024 ): 1955 Age: 68 There has been approximately a 6 lb weight gain since 10/29/2023. This represents approximately a 5.7% change in weight. Weight change attributable to lifestyle changes. Vital Signs:Blood Pressure: Sitting Rt. Arm 136/70Pulse: Sitting 72 /min and RegularRespiratory Rate: 12Height 65 in or 1.7 mWeight 112 lb or 50.8 kgBMI 18.6Temperature: 97.4 F or 36.3 CPulse Oximetry: 98 % at rest on no oxygen Chief Complaint: Addressed in HPI Problems or conditions discussed in the HPI were the only ones reviewed during the encounter.Only social and family history addressed in the HPI were reviewed during this encounter. Attendant(s): NoneConstitutional and Systemic Symptoms:none Medication Reconciliation: from medication list. History of Present Illness #1. Coronary Artery Disease: There has been some change in frequency, duration or intensity of chest pain. Other Complaints: none The frequency of anginal attacks is several times per week. Additional Symptoms: none, syncope, pre-syncope, vertigo, ataxia and palpitations Therapy reviewed regarding cardiovascular management includes Stage I #2. Essential Hypertension: Stage: no headaches, dizziness and weakness Interval Neurological Complaints excellent. No shortness of breath, orthopnea or cardiovascular symptoms. No other symptoms related to end organ damage. Pressure has been under normal control. Currently salt restriction and Hydrochlorothiazide, Lisinopril, Metoprolol and Norvasc. No other end organ symptoms or findings. Therapy reviewed regarding management of hypertension and includes Type II Hypercholesterolaemia. #3. taking medication and tolerating well: Currently No. excellent control interval complaints of any muscle pain or arthralgia. No significant liver changes with medications. Last lipid panel: diet and Lipitor. Therapy reviewed regarding treatment of cholesterol management and include diet and Lipitor. Active Medication ListAspirin 81 MG TABLET One DailyMetoprolol 25 MG TABLET One BidNorvasc 10 MG (TABLET - ORAL) One Daily For HtnHydrochlorothiazide 25 MG (TABLET - ORAL) One Daily For HtnLisinopril 20 MG (TABLET - ORAL) One Daily For HtnLipitor 40 MG (TABLET - ORAL) Once Daily Adverse Drug Reactions ReviewedCodeine Nausea Vaccination and Shygqsxtckgi9909-80 Lhybpnzo4196-21 Jtbgcuycd1672-03 Covid Booster Oupjhuw7681-16 Eyrjaermi2132-20 Covid 19 Jerman & Nefadug0356-38 Prevnar 13 [facility] Surgical Hfexrcb0158-11 Sxrzkhfti6828-50 Pulmonary Artery Fxxaywo1324-42 Rt. Typanoplasty Preventative Fbnmzrd5210/30/2023 ALBUMIN 4.2 G/DL06/12/2022 MAMMOGRAM DEXA SCAN11/02/2021 COLOGUARD 5110/02/2010 COLONOSCOPY (10 YEARS) 08/02/2021 Social HistorySOCIAL HISTORY:Does not smoke cigarettes. Drinking Hx: 2 Cups of coffee per day, < 6 cans of soft drinks per day.Exercise: InfrequentlySexual Hx: Sexually ActiveOccupation: Athletic Coach Family HistoryFAMILY HISTORY:Mother 85 years old ASDHFather 50 years old2 Brothers 2 Living4 Sisters 3 Living one sudden Active Medication ListAspirin 81 MG TABLET One DailyMetoprolol 25 MG TABLET One BidNorvasc 10 MG (TABLET - ORAL) One Daily For HtnHydrochlorothiazide 25 MG (TABLET - ORAL) One Daily For HtnLisinopril 20 MG (TABLET - ORAL) One Daily For HtnLipitor 40 MG (TABLET - ORAL) Once Daily Adverse Drug Reactions ReviewedCodeine Nausea Vaccination and Hgnqqujgbypg2418-63 Rllvmppd2382-72 Iwfhzdwaz6894-32 Covid Booster Eokwdjx3116-97 Ljqndqqoa6900-58 Covid 19 Jerman & Tmmzisj1013-72 Prevnar 13 Gc Surgical Jnghlag8058-26 Pfrwqifbn6121-91 Pulmonary Artery Egrlsfi1420-58 Rt. Typanoplasty Preventative Czjrgkl3210/30/2023 ALBUMIN 4.2 G/DL06/12/2022 MAMMOGRAM / DEXA SCAN11/02/2021 COLOGUARD 5110/02/2010 COLONOSCOPY (10 YEARS) 08/02/2021 Social HistorySOCIAL HISTORY:Does not smoke cigarettes. Drinking Hx: 2 Cups of coffee per day, < 6 cans of soft drinks per day.Exercise: InfrequentlySexual Hx: Sexually ActiveOccupation: Athletic Coach Family HistoryFAMILY HISTORY:Mother 85 years old ASDHFather 50 years old2 Brothers 2 Living4 Sisters 3 Living one sudden TEST RESULT RANGE UNITSLIPID PANEL Date: 4CHOLESTEROL 164 140-199 MG/DLTRIGLYCERIDES 58 0-150 MG/DLHDL CHOLESTEROL 74 40- MG/DLLDL CHOLESTEROL, CALCULATED 78 0-130 MG/DL Tono Torres MD [address] [facility], [facility] [address], [place], [address], [facility] 02/04/2024 16:38:28 4 text/htm l Patient Name: Romy Tothate Of Service: Friday ( 04.28.2024 ): 1955 Age: 68 There has been approximately a 9 lb weight gain since 02/04/2024. This represents approximately a 8.0% change in weight. Weight change attributable to lifestyle changes. Vital Signs:Blood Pressure: Sitting Rt. Arm 118/75Pulse: Sitting 61 /min and RegularRespiratory Rate: 14Height 65 in or 1.7 mWeight 121 lb or 54.9 kgBMI 20.1 Chief Complaint: Addressed in HPI Problems or conditions discussed in the HPI were the only ones reviewed during the encounter.Only social and family history addressed in the HPI were reviewed during this encounter. Attendant(s): NoneConstitutional and Systemic Symptoms:none Medication Reconciliation: from medication list. Spkpryznpgc38-33-9634: nuclear stress test demonstrated a normal EKG with no ischemic ST or T-wave changes following basal dilator stress. Left ventricular ejection fraction calculated at 66%. Normal perfusion imaging with no evidence of any ischemia or scar History of Present Illness #1. Coronary Artery Disease: There has been no change in frequency - duration - intensity in frequency, duration or intensity of chest pain. Other Complaints: none The frequency of anginal attacks is none at all. Additional Symptoms: none Therapy reviewed regarding cardiovascular management includes Aspirin, Hydrochlorothiazide, Lipitor, Lisinopril, Metoprolol and Norvasc #2. Essential Hypertension: Stage: Stage I Interval Neurological Complaints no headaches. No shortness of breath, orthopnea or cardiovascular symptoms. No other symptoms related to end organ damage. Pressure has been under fair control. Currently normal. No other end organ symptoms or findings. Therapy reviewed regarding management of hypertension and includes salt restriction and Hydrochlorothiazide, Lisinopril, Metoprolol and Norvasc. #3. Type II Hypercholesterolaemia: Currently taking medication and tolerating well. No interval complaints of any muscle pain or arthralgia. No significant liver changes with medications. Last lipid panel: excellent control. Therapy reviewed regarding treatment of cholesterol management and include diet and Lipitor. Active Medication ListAspirin 81 MG TABLET One DailyMetoprolol 25 MG TABLET One BidNorvasc 10 MG (TABLET - ORAL) One Daily For HtnHydrochlorothiazide 25 MG (TABLET - ORAL) One Daily For HtnLisinopril 20 MG (TABLET - ORAL) One Daily For HtnLipitor 40 MG (TABLET - ORAL) Once Daily Adverse Drug Reactions ReviewedCodeine Nausea Vaccination and Lensqqtqraru2171-27 Xousybbv5748-58 Rwldiepck5536-89 Covid Booster Gxyruoy7725-71 Ilmtqjvrb7628-58 Covid 19 Jerman & Twmgbab9676-69 Prevnar 13 Gc Surgical Udiexnx5700-32 Khtcydgqb4152-65 Pulmonary Artery Yvsrjbj1684-80 Rt. Typanoplasty Preventative Testing( ) 10/30/2023 Albumin 4.2 G/DL( ) 06/12/2022 Mammogram 06/12/2024( ) 05/12/2022 DEXA Scan 05/12/2024( ) 11/02/2021 Cologuard 11/02/2024 Social HistorySOCIAL HISTORY:Does not smoke cigarettes. Drinking Hx: 2 Cups of coffee per day, < 6 cans of soft drinks per day.Exercise: InfrequentlySexual Hx: Sexually ActiveOccupation: Athletic Coach Family HistoryFAMILY HISTORY:Mother 85 years old ASDHFather 50 years old2 Brothers 2 Living4 Sisters 3 Living one sudden TEST RESULT RANGE UNITSCBC/COMPLETE BLD COUNT W/DIFF Date: 10/30/2023WHITE BLOOD CELLS 3.3 4.2-10.8 X10'3/ULHEMOGLOBIN 12.1 12.0-15.6 G/DLHEMATOCRIT 38.3 35.7-45.7 %PLATELETS 159 150-400 X10'3/ULCOMPREHENSIVE METABOLIC PANEL Date: 10/30/2023SODIUM 136 137-145 MMOL/LPOTASSIUM 3.5 3.5-5.1 MMOL/LBUN 21 8-19 MG/DLCREATININE 1.49 0.66-1.25 MG/DLGFR 42ALKALINE PHOSPHATASE 67 38-126 U/LALANINE AMINOTRANSFERASE 13 0-35 U/LASPARTATE AMINOTRANSFERASE 26 15-37 U/LBILIRUBIN, TOTAL 0.60 0.20-1.30 MG/DLLIPID PANEL Date: 10/30/2023HOLESTEROL 164 140-199 MG/DLTRIGLYCERIDES 58 0-150 MG/DLHDL CHOLESTEROL 74 40- MG/DLLDL CHOLESTEROL, CALCULATED 78 0-130 MG/DLT4 FREE Date: 10/30/2023FREE T4 0.99 0.78-2.19 NG/DLTSH Date: 10/30/2023THYROID-STIMULATIN G HORMONE 0.927 0.465-4.680 UIU/ML Tono Torres MD [address] [facility], [facility] [address], [place], [address], [facility] [place] 04/28/2024 11:56:07 5 text/htm l Patient Name: Romy Gayle Of Service: Friday ( 10.27.2024 ): 1955 Age: 69 There has been approximately a 5 lb weight gain since 04/28/2024. This represents approximately a 4.1% change in weight. Weight change attributable to lifestyle changes. Vital Signs:Blood Pressure: Sitting Rt. Arm 132/72Pulse: Sitting 79 /min and RegularRespiratory Rate: 16Height 65 in or 1.7 mWeight 126 lb or 57.2 kgBMI 21.0Pulse Oximetry: 98 % at rest on no oxygen Chief Complaint: Addressed in HPI Problems or conditions discussed in the HPI were the only ones reviewed during the encounter.Only social and family history addressed in the HPI were reviewed during this encounter. Attendant(s): NoneConstitutional and Systemic Symptoms:none Medication Reconciliation: from medication list. [id number]: nuclear stress test demonstrated a normal EKG with no ischemic ST or T-wave changes following basal dilator stress. Left ventricular ejection fraction calculated at 66%. Normal perfusion imaging with no evidence of any ischemia or scar History of Present Illness #1. Coronary Artery Disease: There has been no change in frequency - duration - intensity in frequency, duration or intensity of chest pain. Other Complaints: none The frequency of anginal attacks is none at all. Additional Symptoms: none Therapy reviewed regarding cardiovascular management includes Aspirin, Hydrochlorothiazide, Lipitor, Lisinopril, Metoprolol and Norvasc #2. Essential Hypertension: Stage: Stage I Interval Neurological Complaints no headaches, dizziness, weakness, visual changes, ataxia, aphasia and apraxia. No shortness of breath, orthopnea or cardiovascular symptoms. No other symptoms related to end organ damage. Pressure has been under excellent control. Currently normal. No other end organ symptoms or findings. Therapy reviewed regarding management of hypertension and includes weight loss and Hydrochlorothiazide, Lisinopril, Metoprolol and Norvasc. #3. Type II Hypercholesterolaemia: Currently taking medication and tolerating well. No interval complaints of any muscle pain or arthralgia. No significant liver changes with medications. Last lipid panel: fair control. Therapy reviewed regarding treatment of cholesterol management and include diet and Lipitor. Active Medication ListAspirin 81 MG TABLET One DailyMetoprolol 25 MG TABLET One BidNorvasc 10 MG (TABLET - ORAL) One Daily For HtnHydrochlorothiazide 25 MG (TABLET - ORAL) One Daily For HtnLisinopril 20 MG (TABLET - ORAL) One Daily For HtnLipitor 40 MG (TABLET - ORAL) Once Daily Adverse Drug Reactions ReviewedCodeine Nausea Vaccination and Immunization( ) 2020-04 PREVNAR 13 GC( ) 2024- INFLUENZA( ) 2020- PNEUMOVAX( ) 2020- COVID 19 JERMAN & JERMAN(X) 2021-06 COVID BOOSTER MODERNA( ) 2022-02 SHINGRIX Surgical [id number] [id number] Pulmonary Artery [id number] Rt. Typanoplasty Preventative Testing( ) 04/28/2024 Albumin 4.0 G/DL(X) 06/12/2022 Mammogram 06/12/2024(X) 05/12/2022 DEXA Scan 05/12/2024( ) 11/02/2021 Cologuard 11/02/2024 Social HistorySOCIAL HISTORY:Does not smoke cigarettes. Drinking Hx: 2 Cups of coffee per day, < 6 cans of soft drinks per day.Exercise: InfrequentlySexual Hx: Sexually ActiveOccupation: Athletic Coach Family HistoryFAMILY HISTORY:Mother 85 years old ASDHFather 50 years old2 Brothers 2 Living4 Sisters 3 Living one sudden TEST RESULT RANGE UNITSCBC/COMPLETE BLD COUNT W/DIFF Date: 04/28/2024WHITE BLOOD CELLS 3.8 4.2-10.8 X10'3/ULHEMOGLOBIN 11.6 12.0-15.6 G/DLHEMATOCRIT 37.9 35.7-45.7 %PLATELETS 154 150-400 X10'3/ULCOMPREHENSIVE METABOLIC PANEL Date: 04/28/2024SODIUM 137 137-145 MMOL/LPOTASSIUM 4.2 3.5-5.1 MMOL/LBUN 26 8-19 MG/DLCREATININE 1.51 0.66-1.25 MG/DLGLUCOSE 90 70-99 MG/DLGFR 41CALCIUM 9.2 8.4-10.2 MG/DLLIPID PANEL Date: 04/28/2024HOLESTEROL 150 140-199 MG/DLTRIGLYCERIDES 46 0-150 MG/DLHDL CHOLESTEROL 74 40- MG/DLLDL CHOLESTEROL, CALCULATED 67 0-130 MG/DL Tono Torres MD [address] [facility], [facility] [address], [place], [address], [facility] 10/27/2024 10:30:28 OBGyn Episode No OBEpisode recorded.
== END 2025-03-22 16:12 | disposition home or self-care (01) ==
PROVIDERS: Visit Provider Internal Medicine
DX: Z12.31 Encounter for screening mammogram for malignant neoplasm of breast (principal)
CPT/HCPCS: 77063; 77067

== ENCOUNTER 2025-06-02 13:34 | Outpatient (CLI) | payer MEDICARE, SELFPAY ==
--- NOTE | ~2025-06-02 | DEXA_ITS ---
Bone Density Report Name: TAMAR REED Age: 69 Sex: Female Ethnicity: Black Date of : 1955 Indication: postmenopausal; screening for osteoporosis; Referring Provider: ROME*, MARK Almazan Study: Bone densitometry was performed. Exam Date: June 02, 2025 Accession number: [id number] Bone Density: Region BMD T-score Z-score Classification AP Spine(L1-L4) 1.022 -0.2 1.3 Normal Femoral Neck (Left) 0.713 -1.2 -0.2 Osteopenia Total Hip (Left) 0.882 -0.5 0.2 Normal Femoral Neck (Right) 0.634 -1.9 -0.8 Osteopenia Total Hip (Right) 0.847 -0.8 0.0 Normal Total Hip Mean 0.865 -0.7 0.1 Normal World Health Organization criteria for BMD impression classify patients as: Normal (T-score at or above -1.0), Osteopenia (T-score between -1.0 and -2.5), or Osteoporosis (T-score at or below -2.5). 10-year Fracture Risk(1): Major Osteoporotic Fracture 5.4% Hip Fracture 1.1% Reported Risk Factors: [place] (Black), Neck BMD=0.634, BMI=26.4 (1) FRAX(R) Version 3.08. Fracture probability calculated for an untreated patient. Fracture probability may be lower if the patient has received treatment. Clinical Information Provided by Patient: Has used the following medications: Vitamin D, Calcium Patient maximum height was 60 Menopause Age: 49 No regular weight bearing exercise Drinks caffeinated beverages Onset of menses at age 14 Number of children 2 Impression: The patient has low bone mass, based on the Right Femoral Neck T-score. The patient has an estimated ten-year risk of hip fracture of 1.1% and an estimated ten-year risk of major fracture of 5.4%, based on the WHO FRAX algorithm. Discussion: BONE DENSITY IS LOW AT ONE OR MORE SKELETAL SITES. This patient's lowest T-score is low at one or more skeletal sites. It meets the World Health Organization's (WHO) criteria for ?low bone mass? (T-score between -1.0 and -2.5). The patient's 10-year risk of fracture as calculated by FRAX is less than the threshold where pharmacological therapy is recommended by the National Osteoporosis Foundation (NOF). However, all treatment decisions require clinical judgment and consideration of individual patient factors, including patient preferences, comorbidities, previous drug use, risk factors not captured in the FRAX model (e.g., frailty, falls, vitamin D deficiency, increased bone turnover, interval significant decline in bone density) and possible under or overestimation of fracture risk by FRAX. The patient should follow a healthful lifestyle (good nutrition with adequate calcium and vitamin D, and appropriate weight-bearing exercise). Follow-Up: Consider repeating this study in 2 to 3 years to reassess this patient's status, or sooner if there is some new clinical indication. Reported by: NEHA on 06/02/2025 2:11:00 PM. Reviewed, dictated and finalized at location A.
--- OUTSIDE RECORDS SUMMARY | 2025-06-02 15:20 | XMS_ITS | Clinical Summary ---
Author Organization [facility] Facility Address [address] [place] [address] Care Team Providers Care Cue Selector Name Role Phone Tono Torres MD Primary Care Provider [phone] Encounters Date Type Department Care Team Description 05/25/2025 Documentation Only [facility] [employer] Emergency Department, [facility] [address] [place] [id number] ProviderAlysia MD from Last 3 Months Social History Tobacco Use Types Packs/Day Years [...] Sigmoidoscopy 2002 Pneumococcal Vaccine: 50+ Ye ars (2 of 2 - PPSV23, PCV20, or PCV21) 07/10/2020 05/15/2020 Influenza Vaccine (#1) 2025 06/08/2024 Hepatitis B Vaccine Aged Out No longe r eligible based on patient's age to complete this topic Insurance [facility] Medicare Care Teams Cue Selector Relationship Specialty Start Date End Date Tono Torres MD [address] [facility] [address] [place] [address] PCP - General Internal Medicine 05/03/24
== END 2025-06-02 13:35 | disposition home or self-care (01) ==
LOC: ANHFOHIMG 13:36
PROVIDERS: PCP Internal Medicine; Visit Provider Internal Medicine
DX: M85.852 Other specified disorders of bone density and structure, left thigh (principal); M85.851 Other specified disorders of bone density and structure, right thigh
CPT/HCPCS: 77080